=== PATIENT | male | born 1950 | race African-American/Black ===

== ENCOUNTER 2019-02-27 08:06 | Inpatient (IN) | payer OTHER | END 2019-03-03 15:29 | LOC: JER 08:06 → JERBED 11:04 → J5S 13:06 ==

== ENCOUNTER 2020-06-29 19:13 | Emergency (ER) | payer OTHER ==
--- NOTE | 2020-06-29 19:48 | PDOC ---
History of Present Illness - General Stated Complaint: SYNCOPE/NO BOWEL MOVEMENT Time Seen by Provider: 06/29/20 19:45 History Source: Patient, Family Exam Limitations: No Limitations - History of Present Illness Initial Comments: 06/29/20 20:10 70 y.o. M PMHx of HTN, Parkinsons, medically blind presenting due to a syncopal event. Patients history was taken form the son. Patient was sitting down getting his hair cut when he suddenly began foaming out the mouth and lost consciousness. The son reports he was "blacked out" for 5 minutes, during this time he saw no tongue biting, tremors, shaking or incontinence and was at baseline consciousness when he awoke from the incident. Patient had a similar episode 2 weeks ago. Patient reports chills at night but no fevers, headache, sob, chest pain, N/V/D. PCP: Luis PMHx: HTN, Parkinsons, medically blind Meds: In Chart Allergies: NKA 06/29/20 20:29 Is this a multiple visit Asthma Patient?: No Timing/Duration: momentarily Severity: moderate Past History - Medical History Allergies/Adverse Reactions: Allergies Allergy/AdvReac Type Severity Reaction Status Date / Time No Known Allergies Allergy Verified 01/31/20 20:28 Home Medications: Ambulatory Orders Amlodipine Bes/Olmesartan Med [Amlodipine-Olmesartan 10-20 mg] 5 mg PO BID 01/31/20 Acetaminophen [Tylenol .Regular Strength -] 650 mg PO Q6H PRN tablet 02/04/20 Metoprolol Succinate [Toprol XL -] 25 mg PO DAILY #30 tab.sr.24h 02/04/20 Anemia: No Asthma: No Cancer: No Cardiac Disorders: No CVA: No COPD: No CHF: No Dementia: No Diabetes: No GI Disorders: No Disorders: No HTN: Yes Hypercholesterolemia: No Liver Disease: No Seizures: No Thyroid Disease: No - Surgical History Abdominal Surgery: No Appendectomy: No Cardiac Surgery: No Cholecystectomy: No Lung Surgery: No Neurologic Surgery: No Orthopedic Surgery: Yes (FX RIGHT ANKLE TEEN) - Psycho-Social/Smoking History Smoking Status: No Smoking History: Never smoked Have you smoked in the past 12 months: No Number of Cigarettes Smoked Daily: 0 Review of Systems - Review of Systems Able to Perform ROS?: Yes Is the patient limited Armenian proficient: No Constitutional: Yes: Chills. No: Fever HEENTM: Yes: Other (reduced vision). No: Blurred Vision, Double Vision Respiratory: No: Cough, Shortness of Breath, Stridor, Wheezing Cardiac (ROS): No: Chest Pain, Lightheadedness ABD/GI: No: Constipated, Diarrhea, Nausea, Vomiting : No: Burning, Dysuria Musculoskeletal: No: Back Pain, Muscle Weakness Integumentary: No: Bruising, Dryness, Rash Neurological: No: Headache, Numbness, Tingling Hematologic/Lymphatic: No: Blood Clots, Easy Bruising *Physical Exam - Physical Exam General Appearance: Yes: Nourished, Appropriately Dressed. No: Apparent Distress Respiratory/Chest: positive: Lungs Clear, Normal Breath Sounds. negative: Chest Tender, Respiratory Distress, Accessory Muscle Use, Crackles, Rales, Stridor, Wheezing Cardiovascular: positive: Regular Rhythm, Regular Rate. negative: Edema, JVD, Murmur Gastrointestinal/Abdominal: positive: Normal Bowel Sounds, Flat, Soft. negative: Tender, Guarding, Rebound, Tenderness Musculoskeletal: positive: Normal Inspection. negative: CVA Tenderness Extremity: positive: Normal Inspection. negative: Tender, Pedal Edema, Swelling, Calf Tenderness Integumentary: positive: Normal Color, Dry, Warm. negative: Rash, Swelling Neurologic: positive: Fully Oriented, Alert, Normal Mood/Affect, Normal Response ED Treatment Course - LABORATORY CBC & Chemistry Diagram: 06/29/20 20:40 06/29/20 20:40 Medical Decision Making - Medical Decision Making 06/29/20 20:35 70 y.o. M PMHx of HTN, Parkinsons, medically blind presenting due to a syncopal event. DDx: Syncope (neurogenic vs. cardiogenic), seizure, arrhythmia Labs: WBC 7.5, Na 142, K 3.9, Trop <0.02 CT Chest: No acute pathology CT Head: No acute intracranial pathology EKG: NSR, QTc 418ms, rate 72 Son: Hayes ([phone]) would like to be contacted with updates. Dispo: Admission 06/29/20 23:48 Discharge - Discharge Information Problems reviewed: Yes Clinical Impression/Diagnosis: Legally blind Syncope Qualifiers: Syncope type: unspecified Qualified Code(s): R55 - Syncope and collapse Condition: Unchanged/Unknown Disposition: AGAINST MEDICAL ADVICE - Admission Yes - Follow up/Referral Referrals: Jeramie Shore MD [Primary Care Provider] - Donovan Melgar MD [Staff Physician] - Jo Foster MD [Staff Physician] - - Patient Discharge Instructions Patient Printed Discharge Instructions: DI for Syncope in Adults (Fainting) Additional Instructions: Please go to your doctors appointment at 9:30am tomorrow. Please also call the neurologist and the plane runner to schedule a follow up appointment. Please return to the ER immediately with any further concerns or complaints. - Post Discharge Activity
[2020-06-29 20:28] VITALS: TEMP 99.1; BMI 20.9
--- NOTE | 2020-06-29 21:12 | PDOC ---
Documentation entered by Ladan Steele SCRIBE, acting as scribe for Micheline Landis DO. Micheline Landis DO: This documentation has been prepared by the Ivette sehlton Xhesika, SCRIBE, under my direction and personally reviewed by me in its entirety. I confirm that the documentation accurately reflects all work, treatment, procedures, and medical decision making performed by me. Attending Attestation - Resident Resident Name: Hiram Mcclure - ED Attending Attestation I have performed the following: I have examined & evaluated the patient, The case was reviewed & discussed with the resident, I agree w/resident's findings & plan, Exceptions are as noted - HPI HPI: 06/29/20 20:04 The patient is a 70y/o M with a pmh of HTN and Parkinson's who presents to the ED s/p syncopal event. Per son the pt was sitting eating, when he started foaming at mouth, and fell backwards. Per son the patient lost consciousness for 5 minutes and pt was fully alert after the incident. Son denies any tongue biting, tremors, shaking or incontinence. Son notes the patient had a similar episode 2 weeks ago. The patient denies chest pain, shortness of breath, headache and dizziness. Denies fever, chills, cough, nausea, vomiting, diarrhea and constipation. Allergies: NKDA - Physicial Exam PE: 06/29/20 20:07 GENERAL: Awake, alert, and fully oriented, in no acute distress HEAD: No signs of trauma EYES: blind, no vision only see shadow ENT: Auricles normal inspection, hearing grossly normal, nares patent, oropharynx clear without exudates. Moist mucosa. +edentulous NECK: Normal ROM, supple, no lymphadenopathy, JVD, or masses LUNGS: Breath sounds equal, clear to auscultation bilaterally. No wheezes, and no crackles HEART: Regular rate and rhythm, normal S1 and S2, no murmurs, rubs or gallops ABDOMEN: Soft, nontender, normoactive bowel sounds. No guarding, no rebound. No masses EXTREMITIES: Normal range of motion, no edema. No clubbing or cyanosis. No cords, erythema, or tenderness NEUROLOGICAL: Cranial nerves II through XII grossly intact. Normal speech SKIN: Warm, Dry, normal turgor, no rashes lesions noted. - Medical Decision Making 06/29/20 21:09 a/p: 70 yo male with 2 syncopal episodes -syncope tonight with his son, witness in a chair -foaming at the mouth, loc, no head injury, lasted "5" min -also with a syncopal episode 2 weeks ago, did not get eval while walking with his son, unsure if he hit his head at that time -pt is blind otherwise neuro intact -small area of ecchymosis to R upper arm -will send labs, ekg, cxr, head ct -will need obs for syncope 06/29/20 21:11 pt states he has not taken his parkinsons meds in 6m because he does not like the side effects 06/29/20 22:01 Cr at baseline trop neg ct imaging pending 06/29/20 22:[address] ct chest neg microblog sent to [facility] for obs for syncope eval 06/30/20 00:12 son at the bedside pt states he wants to AMA discussed risks and benefits discussed results and concerns for repeat syncope episodes son states he will take his father to the doctor at 930a tomorrow with his PMD pt states he wants to sign out ama will give cards and neuro follow up Heart Score/ECG Review - ECG Intrepretation Comment:: 06/29/20 21:11 sinus at 72, nl axis, nl interval, q waves septally which are age indeterminate, no acute st/t wave findings Discharge - Discharge Information Problems reviewed: Yes Clinical Impression/Diagnosis: Legally blind Syncope Qualifiers: Syncope type: unspecified Qualified Code(s): R55 - Syncope and collapse Condition: Unchanged/Unknown Disposition: AGAINST MEDICAL ADVICE - Admission No - Follow up/Referral Referrals: Jeramie Shore MD [Primary Care Provider] - Jo Foster MD [Staff Physician] - Donovan Melgar MD [Staff Physician] - - Patient Discharge Instructions Patient Printed Discharge Instructions: DI for Syncope in Adults (Fainting) Additional Instructions: Please go to your doctors appointment at 9:30am tomorrow. Please also call the neurologist and the pet supplies salesperson to schedule a follow up appointment. Please return to the ER immediately with any further concerns or complaints. - Post Discharge Activity
[2020-06-29 21:16] LABS: BASO % 0.4 % (0-2.0); EOS % 0.7 % (0-4.5); HEMATOCRIT 33.8 % (35.4-49); HEMOGLOBIN 11.3 GM/dL (11.7-16.9); LYMPH % 18.8 % (8-40); MCH 30.1 pg (25.7-33.7); MCHC 33.3 g/dl (32.0-35.9); MEAN CELL VOLUME 90.5 fl (80-96); MEAN PLT VOLUME 9.2 fl (7.5-11.1); MONO % 5.6 % (3.8-10.2); NEUT % 74.5 % (42.8-82.8); PLATELET COUNT 98 K/MM3 (134-434); RBC 3.74 M/mm3 (4.00-5.60); RDW 15.1 % (11.9-15.9); WHITE BLOOD COUNT 7.5 K/mm3 (4.0-10.0)
[2020-06-29 21:48] LABS: ALBUMIN 3.2 g/dl (3.4-5.0); ALK PHOS 44 U/L (45-117); ANION GAP 5 MMOL/L (8-16); BILIRUBIN,TOTAL 0.8 mg/dL (0.2-1); BLOOD UREA NITROGEN 29.1 mg/dL (7-18); CALCIUM 8.5 mg/dL (8.5-10.1); CHLORIDE 109 mmol/L (98-107); CO2 28 mmol/L (21-32); CREATININE 1.6 mg/dL (0.55-1.3); GLUCOSE,RANDOM 86 mg/dL (74-106); POTASSIUM 3.9 mmol/L (3.5-5.1); SGOT/AST 34 U/L (15-37); SGPT/ALT 34 U/L (13-61); SODIUM 142 mmol/L (136-145); TOT PROT 6.5 g/dl (6.4-8.2)
[2020-06-30 00:44] VITALS: BP 119/66; PULSE 82
--- NOTE | 2020-06-30 13:50 | EKG ---
Test Reason : Blood Pressure : / mmHG Vent. Rate : 072 BPM Atrial Rate : 072 BPM P-R Int : 154 ms QRS Dur : 086 ms QT Int : 382 ms P-R-T Axes : 046 -07 018 degrees QTc Int : 418 ms NORMAL SINUS RHYTHM POOR R WAVE PROGRESSION Confirmed by MARJAN BANGURA MD ([id number]) on 06/30/2020 1:50:04 PM Referred By: Confirmed By:MARJAN BANGURA MD
== END 2020-06-30 00:43 | disposition left against medical advice (07) ==
LOC: JER 19:13
DX: H54.8 Legal blindness, as defined in USA (principal); R55 Syncope and collapse
CPT/HCPCS: 36415; 70450-TC; 71045-TC-FY; 71250-TC; 80053; 82550; 82553; 83735; 84484; 85025; 93005; 93010; 99285-25

== ENCOUNTER 2020-09-21 14:29 | Inpatient (IN) | payer OTHER ==
[2020-09-21] MEDS ORDERED: ONDANSETRON 4 MG/2 ML VIAL IVPUSH ONE (16:55)
[2020-09-21 17:20] LABS: BASO % 0.4 % (0-2.0); EOS % 0.3 % (0-4.5); HEMATOCRIT 37.1 % (35.4-49); HEMOGLOBIN 12.4 GM/dL (11.7-16.9); LYMPH % 13.4 % (8-40); MCH 30.9 pg (25.7-33.7); MCHC 33.5 g/dl (32.0-35.9); MEAN CELL VOLUME 92.1 fl (80-96); MEAN PLT VOLUME 9.4 fl (7.5-11.1); MONO % 4.7 % (3.8-10.2); NEUT % 81.2 % (42.8-82.8); PLATELET COUNT 82 K/MM3 (134-434); RBC 4.03 M/mm3 (4.00-5.60); RDW 15.8 % (11.9-15.9); WHITE BLOOD COUNT 9.9 K/mm3 (4.0-10.0)
[2020-09-21 17:46] LABS: PROTHROMBIN TIME (PATIENT) 12.1 SEC (9.7-13.0)
[2020-09-21 17:49] LABS: ACTIVATED PTT 26.5 SECONDS (25.2-36.5)
[2020-09-21 17:59] LABS: CHLORIDE 104 mmol/L (98-107); SODIUM 142 mmol/L (136-145)
[2020-09-21 18:01] LABS: ALBUMIN 3.7 g/dl (3.4-5.0); ANION GAP 8 MMOL/L (8-16); BLOOD UREA NITROGEN 23.9 mg/dL (7-18); CALCIUM 8.9 mg/dL (8.5-10.1); CO2 30 mmol/L (21-32); GLUCOSE,RANDOM 102 mg/dL (74-106)
[2020-09-21 18:04] LABS: CREATININE 1.7 mg/dL (0.55-1.3); SGOT/AST 29 U/L (15-37)
[2020-09-21 18:06] LABS: BILIRUBIN,TOTAL 1.2 mg/dL (0.2-1); TOT PROT 7.2 g/dl (6.4-8.2)
[2020-09-21 18:07] LABS: ALK PHOS 45 U/L (45-117)
[2020-09-21 18:21] LABS: SGPT/ALT 13 U/L (13-61)
[2020-09-21] MEDS ORDERED: ONDANSETRON 4 MG/2 ML VIAL ONE (18:27)
[2020-09-22] MEDS: SODIUM CHLORIDE 1,000 ML IV SCH ×2 (02:39→16:13)
[2020-09-22] MEDS: HEPARIN NA (PORCINE) 5,000 UNITS/ML 1ML VIAL SQ SCH ×3 (05:43→21:23)
[2020-09-22 10:59] LABS: BASO % 0.4 % (0-2.0); EOS % 0.3 % (0-4.5); HEMATOCRIT 35.1 % (35.4-49); HEMOGLOBIN 11.7 GM/dL (11.7-16.9); LYMPH % 21.4 % (8-40); MCH 30.5 pg (25.7-33.7); MCHC 33.4 g/dl (32.0-35.9); MEAN CELL VOLUME 91.5 fl (80-96); MEAN PLT VOLUME 9.6 fl (7.5-11.1); MONO % 5.6 % (3.8-10.2); NEUT % 72.3 % (42.8-82.8); PLATELET COUNT 102 K/MM3 (134-434); RBC 3.84 M/mm3 (4.00-5.60); RDW 15.6 % (11.9-15.9); WHITE BLOOD COUNT 8.7 K/mm3 (4.0-10.0)
[2020-09-22 11:23] LABS: CHLORIDE 105 mmol/L (98-107); SODIUM 140 mmol/L (136-145)
[2020-09-22 11:24] LABS: ANION GAP 5 MMOL/L (8-16); CALCIUM 8.6 mg/dL (8.5-10.1); CO2 30 mmol/L (21-32); GLUCOSE,RANDOM 91 mg/dL (74-106)
[2020-09-22 11:25] LABS: MAGNESIUM 2.1 mg/dL (1.8-2.4)
[2020-09-22 11:26] LABS: ALBUMIN 3.3 g/dl (3.4-5.0); BLOOD UREA NITROGEN 20.4 mg/dL (7-18)
[2020-09-22 11:29] LABS: CREATININE 1.5 mg/dL (0.55-1.3); PHOSPHOROUS 3.3 mg/dL (2.5-4.9); SGOT/AST 30 U/L (15-37); SGPT/ALT 39 U/L (13-61)
[2020-09-22 11:30] LABS: BILIRUBIN,TOTAL 1.4 mg/dL (0.2-1); TOT PROT 6.6 g/dl (6.4-8.2)
[2020-09-22 11:31] LABS: ALK PHOS 44 U/L (45-117)
[2020-09-22] MEDS ORDERED: POTASSIUM CHLORIDE TABS 20 MEQ TABLET.ER (FP) PO ONE (13:31)
[2020-09-23 01:20] VITALS: BMI 24.1
[2020-09-23] MEDS: SODIUM CHLORIDE 1,000 ML IV SCH (03:15)
[2020-09-23] MEDS: HEPARIN NA (PORCINE) 5,000 UNITS/ML 1ML VIAL SQ SCH ×3 (05:24→21:36)
[2020-09-23 07:20] LABS: BASO % 0.5 % (0-2.0); EOS % 0.5 % (0-4.5); HEMATOCRIT 33.4 % (35.4-49); HEMOGLOBIN 11.5 GM/dL (11.7-16.9); LYMPH % 26.2 % (8-40); MCHC 34.4 g/dl (32.0-35.9); MEAN CELL VOLUME 89.9 fl (80-96); MONO % 5.7 % (3.8-10.2); NEUT % 67.1 % (42.8-82.8); PLATELET COUNT 107 K/MM3 (134-434); RBC 3.71 M/mm3 (4.00-5.60); RDW 15.4 % (11.9-15.9); WHITE BLOOD COUNT 7.1 K/mm3 (4.0-10.0)
[2020-09-23 07:35] LABS: ALBUMIN 3.3 g/dl (3.4-5.0); CALCIUM 8.2 mg/dL (8.5-10.1)
[2020-09-23 07:36] LABS: BLOOD UREA NITROGEN 14.9 mg/dL (7-18); MAGNESIUM 1.9 mg/dL (1.8-2.4)
[2020-09-23 07:39] LABS: CREATININE 1.3 mg/dL (0.55-1.3)
[2020-09-23 07:40] LABS: BILIRUBIN,TOTAL 1.3 mg/dL (0.2-1); TOT PROT 6.4 g/dl (6.4-8.2)
[2020-09-23] MEDS: amLODIPine BESYLATE 5 MG TABLET (FP) PO SCH (12:07)
[2020-09-23] MEDS ORDERED: MIDODRINE HCL 2.5 MG TABLET PO PRN (12:09)
[2020-09-23] MEDS: CARBIDOPA/LEVODOPA 25/100 TABLET (FP) PO SCH ×2 (15:20→21:37)
[2020-09-23] MEDS: MIDODRINE HCL 2.5 MG TABLET PO SCH (18:44)
[2020-09-24] MEDS: SODIUM CHLORIDE 1,000 ML IV SCH (03:10)
[2020-09-24] MEDS: HEPARIN NA (PORCINE) 5,000 UNITS/ML 1ML VIAL SQ SCH ×3 (06:34→22:11)
[2020-09-24] MEDS: CARBIDOPA/LEVODOPA 25/100 TABLET (FP) PO SCH ×3 (06:34→21:53)
[2020-09-24] MEDS ORDERED: TAMSULOSIN HCL 0.4 MG CAP PO SCH (08:30)
[2020-09-24] MEDS: MIDODRINE HCL 2.5 MG TABLET PO SCH ×3 (10:50→19:37)
[2020-09-24] MEDS: amLODIPine BESYLATE 5 MG TABLET (FP) PO SCH (10:54)
[2020-09-24 18:02] LABS: BASO % 0.5 % (0-2.0); EOS % 1.1 % (0-4.5); HEMATOCRIT 33.1 % (35.4-49); HEMOGLOBIN 11.3 GM/dL (11.7-16.9); LYMPH % 29.7 % (8-40); MCH 31.1 pg (25.7-33.7); MEAN CELL VOLUME 91.5 fl (80-96); MEAN PLT VOLUME 9.4 fl (7.5-11.1); MONO % 6.8 % (3.8-10.2); NEUT % 61.9 % (42.8-82.8); PLATELET COUNT 106 K/MM3 (134-434); RBC 3.62 M/mm3 (4.00-5.60); RDW 15.5 % (11.9-15.9); WHITE BLOOD COUNT 7.1 K/mm3 (4.0-10.0)
[2020-09-24 18:28] LABS: ALBUMIN 3.1 g/dl (3.4-5.0); CALCIUM 8.6 mg/dL (8.5-10.1)
[2020-09-24 18:29] LABS: BLOOD UREA NITROGEN 23.4 mg/dL (7-18); MAGNESIUM 2.3 mg/dL (1.8-2.4)
[2020-09-24 18:32] LABS: CREATININE 1.8 mg/dL (0.55-1.3)
[2020-09-24 18:33] LABS: BILIRUBIN,TOTAL 1.1 mg/dL (0.2-1); TOT PROT 6.1 g/dl (6.4-8.2)
[2020-09-24] MEDS ORDERED: PT OWN MED DRAWER 7, Y5N ONE ×2 (19:18→20:48)
[2020-09-25] MEDS: CARBIDOPA/LEVODOPA 25/100 TABLET (FP) PO SCH (05:55)
[2020-09-25] MEDS: HEPARIN NA (PORCINE) 5,000 UNITS/ML 1ML VIAL SQ SCH (05:56)
[2020-09-25 08:37] LABS: BASO % 0.6 % (0-2.0); EOS % 0.8 % (0-4.5); HEMATOCRIT 34.1 % (35.4-49); HEMOGLOBIN 11.7 GM/dL (11.7-16.9); LYMPH % 28.8 % (8-40); MCH 31.1 pg (25.7-33.7); MCHC 34.3 g/dl (32.0-35.9); MEAN CELL VOLUME 90.8 fl (80-96); MEAN PLT VOLUME 8.8 fl (7.5-11.1); MONO % 6.9 % (3.8-10.2); NEUT % 62.9 % (42.8-82.8); PLATELET COUNT 104 K/MM3 (134-434); RBC 3.76 M/mm3 (4.00-5.60); RDW 15.3 % (11.9-15.9); WHITE BLOOD COUNT 7.5 K/mm3 (4.0-10.0)
[2020-09-25 08:49] LABS: CALCIUM 8.2 mg/dL (8.5-10.1)
[2020-09-25 08:50] LABS: ALBUMIN 3.2 g/dl (3.4-5.0); BLOOD UREA NITROGEN 26.4 mg/dL (7-18); MAGNESIUM 2.2 mg/dL (1.8-2.4)
[2020-09-25 08:53] LABS: CREATININE 1.6 mg/dL (0.55-1.3)
[2020-09-25 08:54] LABS: TOT PROT 6.3 g/dl (6.4-8.2)
[2020-09-25] MEDS ORDERED: ALFUZOSIN 10 MG PO SCH (10:00)
[2020-09-25] MEDS: amLODIPine BESYLATE 5 MG TABLET (FP) PO SCH (10:14)
[2020-09-25] MEDS: MIDODRINE HCL 2.5 MG TABLET PO SCH (10:16)
[2020-09-25 11:33] VITALS: BP 127/79; PULSE 67; TEMP 97.7
== END 2020-09-25 11:51 | DRG 57 ==
LOC: JER 14:29 → JERBED 19:19 → J4W 09-22 00:24
PROVIDERS: ADMIT Hospitalist; ATTEND Nurse Practitioner Family
DX: G31.83 Neurocognitive disorder with Lewy bodies (principal); F02.80 Dementia in other diseases classified elsewhere, unspecified severity, without behavioral disturbance, psychotic disturbance, mood disturbance, and anxiety; I12.9 Hypertensive chronic kidney disease with stage 1 through stage 4 chronic kidney disease, or unspecified chronic kidney disease; N18.9 Chronic kidney disease, unspecified; R13.10 Dysphagia, unspecified; H54.8 Legal blindness, as defined in USA
CPT/HCPCS: 36415; 70450-TC; 71045-TC-FY; 72125-TC; 80053; 83735; 84100; 84443; 84484; 85025; 85610; 85730; 87804; 93005; 93010; 97116-GP; 97161-GP; 99285-25; C9803; J1644; U0003

== ENCOUNTER 2021-05-16 14:56 | Emergency (ER) | payer OTHER ==
[2021-05-16 15:20] VITALS: TEMP 98; BMI 26.5
[2021-05-16 16:37] LABS: BASO % 0.3 % (0-2.0); EOS % 0.2 % (0-4.5); HEMATOCRIT 35.8 % (35.4-49); HEMOGLOBIN 12.1 GM/dL (11.7-16.9); LYMPH % 12.2 % (8-40); MCH 29.9 pg (25.7-33.7); MCHC 33.7 g/dl (32.0-35.9); MEAN CELL VOLUME 88.6 fl (80-96); MEAN PLT VOLUME 8.7 fl (7.5-11.1); MONO % 4.3 % (3.8-10.2); PLATELET COUNT 79 10^3/uL (134-434); RBC 4.04 M/mm3 (4.00-5.60); RDW 15.9 % (11.9-15.9); WHITE BLOOD COUNT 7.5 K/mm3 (4.0-10.0)
[2021-05-16 16:54] LABS: CHLORIDE 105 mmol/L (98-107); SODIUM 142 mmol/L (136-145)
[2021-05-16 16:57] LABS: ALBUMIN 3.5 g/dl (3.4-5.0); ANION GAP 7 MMOL/L (8-16); BLOOD UREA NITROGEN 31.2 mg/dL (7-18); CALCIUM 8.7 mg/dL (8.5-10.1); CO2 30 mmol/L (21-32); GLUCOSE,RANDOM 104 mg/dL (74-106)
[2021-05-16 17:00] LABS: CREATININE 1.4 mg/dL (0.55-1.3); SGOT/AST 30 U/L (15-37); SGPT/ALT 15 U/L (13-61)
[2021-05-16 17:01] LABS: BILIRUBIN,TOTAL 1.2 mg/dL (0.2-1)
[2021-05-16 17:03] LABS: ALK PHOS 46 U/L (45-117); TOT PROT 7.3 g/dl (6.4-8.2)
[2021-05-16 17:26] VITALS: BP 148/90; PULSE 60
== END 2021-05-16 17:20 | disposition left against medical advice (07) ==
LOC: JER 14:56
DX: R55 Syncope and collapse (principal); I48.92 Unspecified atrial flutter; Z53.21 Procedure and treatment not carried out due to patient leaving prior to being seen by health care provider
CPT/HCPCS: 36415; 71045-TC-FY; 80053; 84484; 85025; 93005; 93010; 99285-25; C9803; U0003; U0005

== ENCOUNTER 2021-08-05 14:20 | Inpatient (IN) | payer OTHER ==
[2021-08-05 14:40] VITALS: BMI 26.5
[2021-08-05 15:24] LABS: BASO % 0.2 % (0-2.0); EOS % 0.4 % (0-4.5); HEMATOCRIT 34.1 % (35.4-49); HEMOGLOBIN 11.4 GM/dL (11.7-16.9); LYMPH % 9.6 % (8-40); MCHC 33.5 g/dl (32.0-35.9); MEAN CELL VOLUME 89.7 fl (80-96); MEAN PLT VOLUME 7.6 fl (7.5-11.1); MONO % 5.8 % (3.8-10.2); PLATELET COUNT 93 10^3/uL (134-434); RDW 15.7 % (11.9-15.9)
[2021-08-05 15:29] LABS: INR 1.07 (0.83-1.09)
[2021-08-05 15:32] LABS: ACTIVATED PTT 25.2 SECONDS (25.2-36.5)
[2021-08-05 15:42] LABS: CHLORIDE 103 mmol/L (98-107); SODIUM 140 mmol/L (136-145)
[2021-08-05 15:44] LABS: CALCIUM 8.4 mg/dL (8.5-10.1)
[2021-08-05 15:45] LABS: ALBUMIN 3.2 g/dl (3.4-5.0); ANION GAP 6 MMOL/L (8-16); BLOOD UREA NITROGEN 19.4 mg/dL (7-18); CO2 31 mmol/L (21-32); GLUCOSE,RANDOM 126 mg/dL (74-106)
[2021-08-05 15:48] LABS: CREATININE 1.6 mg/dL (0.55-1.3); SGOT/AST 22 U/L (15-37); SGPT/ALT 10 U/L (13-61)
[2021-08-05 15:50] LABS: TOT PROT 6.7 g/dl (6.4-8.2)
[2021-08-05 15:51] LABS: ALK PHOS 50 U/L (45-117)
[2021-08-05] MEDS ORDERED: POTASSIUM CHLORIDE TABS 20 MEQ TABLET.ER (FP) PO ONE ×2 (15:56→16:33)
[2021-08-05] MEDS ORDERED: LACTATED RINGERS SOLUTION 1000 ML INFUS.BAG IV ONE (17:47)
[2021-08-05 17:56] LABS: EPI CELLS 7 /uL (0-25.1); HYALINE CASTS 28 /uL (0-3.1); URINE APPEARANCE CLOUDY; URINE BILIRUBIN 2+ (NEGATIVE); URINE COLOR DK YELLOW; URINE GLUCOSE (UA) NEGATIVE (NEGATIVE); URINE KETONE TRACE (NEGATIVE); URINE LEUK ESTERASE 2+ (NEGATIVE); URINE NITRITE POSITIVE (NEGATIVE); URINE PROTEIN 2+ (NEGATIVE); URINE RBC 41 /uL (0-23.9); URINE WBC 637 /uL (0-25.8)
[2021-08-05 18:10] LABS: PHOSPHOROUS 3.2 mg/dL (2.5-4.9)
[2021-08-05] MEDS ORDERED: CEFTRIAXONE 1 GM in DEXTROSE 5%-WATER - 50 ML IVPB ONE (18:16)
[2021-08-05] MEDS ORDERED: CEFTRIAXONE 1 GM/50 ML BAG ONE (18:20)
[2021-08-05 18:58] LABS: URINE BACTERIA 23 /uL (0-1359)
[2021-08-05] MEDS: SODIUM CHLORIDE 1,000 ML IV SCH (19:30)
[2021-08-05] MEDS ORDERED: PT OWN MED DRAWER 7, Y5N ONE ×2 (21:12→21:46)
[2021-08-05] MEDS: CARBIDOPA/LEVODOPA 25/100 TABLET (FP) PO SCH (21:32)
[2021-08-05] MEDS ORDERED: CARBIDOPA/LEVODOPA 25/100 TABLET (FP) PO SCH (22:00)
[2021-08-06] MEDS ORDERED: PT OWN MED DRAWER 7, Y5N ONE ×2 (05:23→06:20)
[2021-08-06] MEDS: CARBIDOPA/LEVODOPA 25/100 TABLET (FP) PO SCH ×2 (05:27→06:45)
[2021-08-06] MEDS ORDERED: DEXTROSE 5%-WATER - 50 ML IVPB ONE (11:16)
[2021-08-06] MEDS ORDERED: cefTRIAXone SODIUM 1 GM VIAL ONE (11:16)
[2021-08-06] MEDS: CEFTRIAXONE 1 GM in DEXTROSE 5%-WATER - 50 ML IVPB SCH (11:26)
[2021-08-06] MEDS: MIDODRINE HCL 5 MG TABLET PO SCH ×2 (11:26→14:09)
[2021-08-06] MEDS: amLODIPine BESYLATE 5 MG TABLET (FP) PO SCH (11:26)
[2021-08-06] MEDS: TAMSULOSIN HCL 0.4 MG CAP PO SCH ×2 (11:26→18:24)
[2021-08-06 12:02] LABS: BASO % 0.5 % (0-2.0); EOS % 0.3 % (0-4.5); HEMATOCRIT 32.2 % (35.4-49); HEMOGLOBIN 10.8 GM/dL (11.7-16.9); LYMPH % 19.9 % (8-40); MCH 30.3 pg (25.7-33.7); MCHC 33.7 g/dl (32.0-35.9); MEAN CELL VOLUME 89.9 fl (80-96); MEAN PLT VOLUME 8.6 fl (7.5-11.1); MONO % 5.6 % (3.8-10.2); NEUT % 73.7 % (42.8-82.8); PLATELET COUNT 107 10^3/uL (134-434); RBC 3.58 M/mm3 (4.00-5.60); RDW 15.9 % (11.9-15.9); WHITE BLOOD COUNT 7.3 K/mm3 (4.0-10.0)
[2021-08-06 12:29] LABS: CALCIUM 8.5 mg/dL (8.5-10.1)
[2021-08-06 12:30] LABS: ALBUMIN 3.1 g/dl (3.4-5.0); BLOOD UREA NITROGEN 13.8 mg/dL (7-18)
[2021-08-06 12:33] LABS: CREATININE 1.1 mg/dL (0.55-1.3); PHOSPHOROUS 2.9 mg/dL (2.5-4.9)
[2021-08-06 12:34] LABS: BILIRUBIN,TOTAL 1.1 mg/dL (0.2-1); TOT PROT 6.5 g/dl (6.4-8.2)
[2021-08-06] MEDS ORDERED: POTASSIUM CHLORIDE TABS 20 MEQ TABLET.ER (FP) PO ONE (15:05)
[2021-08-06] MEDS: KCL 10 MEQ IVPB 10 MEQ/100 ML INFUS.BAG IVPB SCH ×2 (16:44→18:22)
[2021-08-06] MEDS: SODIUM CHLORIDE 1,000 ML IV SCH (18:21)
[2021-08-06] MEDS: QUEtiapine FUMARATE 25 MG TABLET PO SCH (21:26)
[2021-08-06] MEDS: ATORVASTATIN CA 20 MG TABLET (FP) PO SCH (21:26)
[2021-08-06] MEDS: POTASSIUM CHLORIDE TABS 20 MEQ TABLET.ER (FP) PO SCH (21:26)
[2021-08-07] MEDS: TAMSULOSIN HCL 0.4 MG CAP PO SCH ×2 (06:14→18:01)
[2021-08-07 07:07] LABS: HEMATOCRIT 31.8 % (35.4-49); HEMOGLOBIN 10.8 GM/dL (11.7-16.9); MCH 30.6 pg (25.7-33.7); MEAN CELL VOLUME 89.8 fl (80-96); PLATELET COUNT 106 10^3/uL (134-434); RBC 3.54 M/mm3 (4.00-5.60); RDW 15.5 % (11.9-15.9); WHITE BLOOD COUNT 6.9 K/mm3 (4.0-10.0)
[2021-08-07] MEDS ORDERED: cefTRIAXone SODIUM 1 GM VIAL ONE (07:57)
[2021-08-07] MEDS ORDERED: DEXTROSE 5%-WATER - 50 ML IVPB ONE (07:57)
[2021-08-07] MEDS: POTASSIUM CHLORIDE TABS 20 MEQ TABLET.ER (FP) PO SCH ×2 (09:28→21:53)
[2021-08-07] MEDS: amLODIPine BESYLATE 5 MG TABLET (FP) PO SCH (09:28)
[2021-08-07] MEDS: ASPIRIN COATED 81 MG TABLET.EC PO SCH (09:28)
[2021-08-07] MEDS: CEFTRIAXONE 1 GM in DEXTROSE 5%-WATER - 50 ML IVPB SCH (09:29)
[2021-08-07] MEDS: ENOXAPARIN NA (PORCINE) 40 MG/0.4 ML DISP.SYRIN SQ SCH (09:29)
[2021-08-07 09:54] LABS: ALBUMIN 3.1 g/dl (3.4-5.0); BLOOD UREA NITROGEN 14.5 mg/dL (7-18); CALCIUM 8.4 mg/dL (8.5-10.1); CREATININE 1.2 mg/dL (0.55-1.3); TOT PROT 6.6 g/dl (6.4-8.2)
[2021-08-07] MEDS ORDERED: PATIENT'S OWN MEDICATION (NON-FORMULARY) (Pimavanserin Tartrate [Nuplazid] 34 MG Capsule) PO SCH (10:00)
[2021-08-07] MEDS ORDERED: CARBIDOPA/LEVODOPA 25/100 TABLET (FP) PO SCH (10:00)
[2021-08-07] MEDS: LISINOPRIL 5 MG TABLET PO SCH (14:18)
[2021-08-07 20:57] LABS: N-TERMINAL BNP 236.8 pg/ml (5-125)
[2021-08-07] MEDS: ATORVASTATIN CA 20 MG TABLET (FP) PO SCH (21:53)
[2021-08-07] MEDS: levETIRAcetam 500 MG TABLET (FP) PO SCH (21:53)
[2021-08-07] MEDS: QUEtiapine FUMARATE 25 MG TABLET PO SCH (21:53)
[2021-08-08] MEDS: TAMSULOSIN HCL 0.4 MG CAP PO SCH (06:26)
[2021-08-08 07:39] LABS: BASO % 0.4 % (0-2.0); EOS % 0.8 % (0-4.5); HEMATOCRIT 30.1 % (35.4-49); HEMOGLOBIN 10.1 GM/dL (11.7-16.9); LYMPH % 26.1 % (8-40); MCH 30.2 pg (25.7-33.7); MCHC 33.7 g/dl (32.0-35.9); MEAN CELL VOLUME 89.8 fl (80-96); MEAN PLT VOLUME 8.6 fl (7.5-11.1); MONO % 6.8 % (3.8-10.2); NEUT % 65.9 % (42.8-82.8); PLATELET COUNT 105 10^3/uL (134-434); RBC 3.35 M/mm3 (4.00-5.60); RDW 15.7 % (11.9-15.9)
[2021-08-08 08:36] VITALS: BP 136/79; PULSE 62; TEMP 98.8
[2021-08-08] MEDS: ENOXAPARIN NA (PORCINE) 40 MG/0.4 ML DISP.SYRIN SQ SCH (09:44)
[2021-08-08] MEDS: levETIRAcetam 500 MG TABLET (FP) PO SCH (09:44)
[2021-08-08] MEDS: LISINOPRIL 5 MG TABLET PO SCH (09:44)
[2021-08-08] MEDS: ASPIRIN COATED 81 MG TABLET.EC PO SCH (09:44)
[2021-08-08] MEDS: amLODIPine BESYLATE 5 MG TABLET (FP) PO SCH (09:44)
[2021-08-08 10:22] LABS: ALBUMIN 2.8 g/dl (3.4-5.0); BILIRUBIN,TOTAL 0.9 mg/dL (0.2-1); BLOOD UREA NITROGEN 21.2 mg/dL (7-18); CALCIUM 8.6 mg/dL (8.5-10.1); CREATININE 1.4 mg/dL (0.55-1.3); PHOSPHOROUS 3.8 mg/dL (2.5-4.9); TOT PROT 6.1 g/dl (6.4-8.2)
[2021-08-08 14:28] LABS: MAGNESIUM 2.2 mg/dL (1.8-2.4)
== END 2021-08-08 13:02 | disposition home health service (06) | DRG 101 ==
LOC: JER 14:20 → JERBED 15:07 → J4W 19:19
PROVIDERS: ADMIT Internal Medicine; ATTEND Internal Medicine
DX: R56.9 Unspecified convulsions (principal); I48.92 Unspecified atrial flutter; R44.0 Auditory hallucinations; R55 Syncope and collapse; G20 Parkinson's disease; E87.6 Hypokalemia; N18.9 Chronic kidney disease, unspecified; F03.90 Unspecified dementia, unspecified severity, without behavioral disturbance, psychotic disturbance, mood disturbance, and anxiety; H54.8 Legal blindness, as defined in USA; N40.0 Benign prostatic hyperplasia without lower urinary tract symptoms; I10 Essential (primary) hypertension
CPT/HCPCS: 36415; 70450-TC; 70551-TC; 71045-TC-FY; 80053; 80061; 81003; 82550; 83036; 83735; 83880; 84100; 84443; 84484; 85025; 85027; 85610; 85730; 87086; 93005; 93010; 93306-TC; 95816; 97116-GP; 97162-GP; 99285-25; C9803; U0003; U0005

== ENCOUNTER 2021-08-13 15:58 | Inpatient (IN) | payer OTHER ==
[2021-08-13 17:08] LABS: BASO % 0.5 % (0-2.0); EOS % 0.5 % (0-4.5); HEMATOCRIT 34.7 % (35.4-49); HEMOGLOBIN 11.7 GM/dL (11.7-16.9); MCH 30.5 pg (25.7-33.7); MCHC 33.8 g/dl (32.0-35.9); MEAN CELL VOLUME 90.2 fl (80-96); MEAN PLT VOLUME 8.6 fl (7.5-11.1); MONO % 2.9 % (3.8-10.2); NEUT % 84.1 % (42.8-82.8); PLATELET COUNT 139 10^3/uL (134-434); RBC 3.85 M/mm3 (4.00-5.60); WHITE BLOOD COUNT 8.2 K/mm3 (4.0-10.0)
[2021-08-13 17:15] LABS: INR 1.06 (0.83-1.09); PROTHROMBIN TIME (PATIENT) 11.9 SEC (9.7-13.0)
[2021-08-13 17:18] LABS: ACTIVATED PTT 26.9 SECONDS (25.2-36.5)
[2021-08-13 17:26] LABS: CALCIUM 8.8 mg/dL (8.5-10.1)
[2021-08-13 17:27] LABS: BLOOD UREA NITROGEN 27.1 mg/dL (7-18)
[2021-08-13 17:29] LABS: CREATININE 1.5 mg/dL (0.55-1.3)
[2021-08-13 17:31] LABS: BILIRUBIN,TOTAL 0.7 mg/dL (0.2-1); TOT PROT 7.3 g/dl (6.4-8.2)
[2021-08-13 17:33] LABS: ALBUMIN 3.5 g/dl (3.4-5.0)
[2021-08-13] MEDS ORDERED: POTASSIUM CHLORIDE TABS 20 MEQ TABLET.ER (FP) PO ONE ×2 (17:35→17:43)
[2021-08-13] MEDS ORDERED: LORazepam 2 MG/ML SDV VIAL IVPUSH PRN (19:55)
[2021-08-13] MEDS ORDERED: LORazepam 1 MG TABLET PO PRN (21:01)
[2021-08-13 21:07] LABS: EPI CELLS 8 /uL (0-25.1); HYALINE CASTS 7 /uL (0-3.1); PH,URINE 5.5 (5.0-8.0); URINE APPEARANCE CLOUDY; URINE BACTERIA 2 /uL (0-1359); URINE BILIRUBIN NEGATIVE (NEGATIVE); URINE COLOR YELLOW; URINE GLUCOSE (UA) NEGATIVE (NEGATIVE); URINE KETONE TRACE (NEGATIVE); URINE LEUK ESTERASE NEGATIVE (NEGATIVE); URINE NITRITE NEGATIVE (NEGATIVE); URINE PROTEIN 1+ (NEGATIVE); URINE WBC 17 /uL (0-25.8)
[2021-08-13] MEDS ORDERED: SODIUM CHLORIDE 1,000 ML IV SCH (21:15)
[2021-08-13 23:15] LABS: URINE RBC 36.9 /uL (0-23.9); YEAST NONE SEEN (NEGATIVE)
[2021-08-13 23:23] LABS: URINE CRYSTALS NONE SEEN /hpf
[2021-08-14] MEDS: ATORVASTATIN CA 20 MG TABLET (FP) PO SCH ×2 (00:28→21:47)
[2021-08-14] MEDS: levETIRAcetam 500 MG TABLET (FP) PO SCH ×2 (00:28→10:45)
[2021-08-14] MEDS: TAMSULOSIN HCL 0.4 MG CAP PO SCH ×3 (00:29→21:47)
[2021-08-14 01:10] VITALS: BMI 22.8
[2021-08-14] MEDS: HEPARIN NA (PORCINE) 5,000 UNITS/ML 1ML VIAL SQ SCH ×3 (01:56→17:02)
[2021-08-14] MEDS ORDERED: PATIENT'S OWN MEDICATION (NON-FORMULARY) (Pimavanserin Tartrate [Nuplazid] 34 MG Capsule) PO SCH (10:00)
[2021-08-14] MEDS: ASPIRIN COATED 81 MG TABLET.EC PO SCH (10:45)
[2021-08-14] MEDS: LISINOPRIL 5 MG TABLET PO SCH (10:45)
[2021-08-14] MEDS: amLODIPine BESYLATE 5 MG TABLET (FP) PO SCH (10:45)
[2021-08-14 11:06] LABS: BASO % 0.7 % (0-2.0); EOS % 0.6 % (0-4.5); HEMATOCRIT 32.2 % (35.4-49); HEMOGLOBIN 10.8 GM/dL (11.7-16.9); LYMPH % 20.1 % (8-40); MCH 30.1 pg (25.7-33.7); MCHC 33.6 g/dl (32.0-35.9); MEAN CELL VOLUME 89.4 fl (80-96); MEAN PLT VOLUME 8.6 fl (7.5-11.1); MONO % 3.9 % (3.8-10.2); NEUT % 74.7 % (42.8-82.8); PLATELET COUNT 120 10^3/uL (134-434); RDW 15.8 % (11.9-15.9); WHITE BLOOD COUNT 7.8 K/mm3 (4.0-10.0)
[2021-08-14 12:37] LABS: ALBUMIN 3.1 g/dl (3.4-5.0); BLOOD UREA NITROGEN 17.7 mg/dL (7-18); CALCIUM 8.5 mg/dL (8.5-10.1); MAGNESIUM 2.2 mg/dL (1.8-2.4)
[2021-08-14 12:40] LABS: CREATININE 1.1 mg/dL (0.55-1.3); PHOSPHOROUS 2.8 mg/dL (2.5-4.9)
[2021-08-14 12:41] LABS: TOT PROT 6.4 g/dl (6.4-8.2)
[2021-08-14] MEDS ORDERED: amLODIPine BESYLATE 5 MG TABLET (FP) PO ONE (16:29)
[2021-08-14] MEDS ORDERED: POLYETHYLENE GLYCOL (HEALTHYLAX) 3350 17 GM PACKET PO ONE (16:29)
[2021-08-14] MEDS ORDERED: levETIRAcetam 500 MG TABLET (FP) PO ONE (16:30)
[2021-08-14] MEDS: levETIRAcetam 250 MG TABLET PO SCH (21:47)
[2021-08-15] MEDS: HEPARIN NA (PORCINE) 5,000 UNITS/ML 1ML VIAL SQ SCH ×2 (02:43→11:52)
[2021-08-15 10:07] LABS: HEMATOCRIT 29.6 % (35.4-49); HEMOGLOBIN 10.3 GM/dL (11.7-16.9); MCHC 34.7 g/dl (32.0-35.9); MEAN CELL VOLUME 89.4 fl (80-96); PLATELET COUNT 114 10^3/uL (134-434); RBC 3.31 M/mm3 (4.00-5.60); WHITE BLOOD COUNT 7.7 K/mm3 (4.0-10.0)
[2021-08-15 10:36] LABS: CALCIUM 8.5 mg/dL (8.5-10.1); MAGNESIUM 2.2 mg/dL (1.8-2.4)
[2021-08-15 10:37] LABS: BLOOD UREA NITROGEN 14.8 mg/dL (7-18)
[2021-08-15 10:38] LABS: PHOSPHOROUS 3.3 mg/dL (2.5-4.9)
[2021-08-15 10:40] LABS: BILIRUBIN,TOTAL 1.1 mg/dL (0.2-1)
[2021-08-15 10:43] LABS: ALBUMIN 2.6 g/dl (3.4-5.0)
[2021-08-15] MEDS: amLODIPine BESYLATE 5 MG TABLET (FP) PO SCH (11:50)
[2021-08-15] MEDS: TAMSULOSIN HCL 0.4 MG CAP PO SCH (11:50)
[2021-08-15] MEDS: LISINOPRIL 5 MG TABLET PO SCH (11:51)
[2021-08-15] MEDS: ASPIRIN COATED 81 MG TABLET.EC PO SCH (11:51)
[2021-08-15] MEDS: levETIRAcetam 250 MG TABLET PO SCH (11:51)
[2021-08-15 12:03] VITALS: PULSE 89; TEMP 97.8
[2021-08-15 13:38] VITALS: BP 147/95
== END 2021-08-15 15:45 | disposition home or self-care (01) | DRG 101 ==
LOC: JER 15:58 → JERBED 18:10 → J5S 22:53
PROVIDERS: ATTEND Internal Medicine
DX: G40.909 Epilepsy, unspecified, not intractable, without status epilepticus (principal); N17.9 Acute kidney failure, unspecified; G20 Parkinson's disease; F02.80 Dementia in other diseases classified elsewhere, unspecified severity, without behavioral disturbance, psychotic disturbance, mood disturbance, and anxiety; I12.9 Hypertensive chronic kidney disease with stage 1 through stage 4 chronic kidney disease, or unspecified chronic kidney disease; N18.9 Chronic kidney disease, unspecified
CPT/HCPCS: 36415; 80053; 80177; 81003; 82272; 82962; 83735; 84100; 85025; 85027; 85610; 85730; 87086; 93005; 93010; 93926-TC; 97116-GP; 97162-GP; 99285-25; C9803; J1644; U0003; U0005

== ENCOUNTER 2022-02-12 15:12 | Emergency (ER) | payer OTHER ==
[2022-02-12 15:56] VITALS: BMI 25.4
[2022-02-12 16:50] LABS: VENOUS BASE EXCESS -0.5 mmol/L (-2-2); VENOUS O2 SATURATION 70.9 % (70-80); VENOUS PCO2 41.8 mmHg (38-52); VENOUS PH 7.386 (7.310-7.410)
[2022-02-12 17:03] LABS: BASO % 0.4 % (0-2.0); EOS % 0.4 % (0-4.5); HEMATOCRIT 34.7 % (35.4-49); HEMOGLOBIN 11.7 GM/dL (11.7-16.9); LYMPH % 16.1 % (8-40); MCH 30.2 pg (25.7-33.7); MCHC 33.8 g/dl (32.0-35.9); MEAN CELL VOLUME 89.3 fl (80-96); MEAN PLT VOLUME 7.8 fl (7.5-11.1); MONO % 4.8 % (3.8-10.2); NEUT % 78.3 % (42.8-82.8); PLATELET COUNT 98 10^3/uL (134-434); RBC 3.88 M/mm3 (4.00-5.60); RDW 15.4 % (11.9-15.9); WHITE BLOOD COUNT 6.4 K/mm3 (4.0-10.0)
[2022-02-12 17:27] LABS: BLOOD UREA NITROGEN 22.7 mg/dL (7-18); CALCIUM 8.4 mg/dL (8.5-10.1); MAGNESIUM 2.3 mg/dL (1.8-2.4)
[2022-02-12 17:28] LABS: ALBUMIN 3.2 g/dl (3.4-5.0)
[2022-02-12 17:30] LABS: PHOSPHOROUS 3.6 mg/dL (2.5-4.9)
[2022-02-12 17:31] LABS: CREATININE 1.3 mg/dL (0.55-1.3)
[2022-02-12 17:32] LABS: BILIRUBIN,TOTAL 1.2 mg/dL (0.2-1); TOT PROT 6.7 g/dl (6.4-8.2)
[2022-02-12] MEDS ORDERED: KCL 10 MEQ IVPB 10 MEQ/100 ML INFUS.BAG IVPB SCH (18:00)
[2022-02-12] MEDS ORDERED: KCL 10 MEQ IVPB 10 MEQ/100 ML INFUS.BAG IVPB ONE (19:08)
[2022-02-12 19:11] LABS: URINE APPEARANCE CLEAR; URINE BILIRUBIN NEGATIVE (NEGATIVE); URINE COLOR YELLOW; URINE GLUCOSE (UA) NEGATIVE (NEGATIVE); URINE KETONE TRACE (NEGATIVE); URINE LEUK ESTERASE NEGATIVE (NEGATIVE); URINE NITRITE NEGATIVE (NEGATIVE); URINE PROTEIN TRACE (NEGATIVE)
[2022-02-12 20:56] VITALS: BP 160/100; PULSE 76; TEMP 99.2
== END 2022-02-12 20:59 | disposition home or self-care (01) ==
LOC: JER 15:12
PROC: 3E033GC Introduction of Other Therapeutic Substance into Peripheral Vein, Percutaneous Approach (ICD-10-PCS; principal; 2022-02-12)
DX: G40.89 Other seizures (principal)
CPT/HCPCS: 36415; 71045-TC-FY; 80053; 80177; 81003; 82550; 82803; 83605; 83735; 84100; 84484; 85025; 87086; 93005; 93010; 99285-25

== ENCOUNTER 2022-08-13 10:29 | Inpatient (IN) | payer OTHER ==
[2022-08-13 11:14] LABS: VENOUS BASE EXCESS 1.3 mmol/L (-2-2); VENOUS O2 SATURATION 44.9 % (70-80); VENOUS PCO2 59.6 mmHg (38-52); VENOUS PH 7.302 (7.310-7.410)
[2022-08-13 11:16] LABS: BASO % 0.5 % (0-2.0); EOS % 1.1 % (0-4.5); HEMATOCRIT 34.8 % (35.4-49); HEMOGLOBIN 11.2 GM/dL (11.7-16.9); LYMPH % 23.7 % (8-40); MCH 29.5 pg (25.7-33.7); MCHC 32.2 g/dl (32.0-35.9); MEAN CELL VOLUME 91.6 fl (80-96); MEAN PLT VOLUME 9.7 fl (7.5-11.1); MONO % 4.5 % (3.8-10.2); NEUT % 70.2 % (42.8-82.8); PLATELET COUNT 114 10^3/uL (134-434); RBC 3.79 M/mm3 (4.00-5.60); RDW 16.4 % (11.9-15.9); WHITE BLOOD COUNT 6.9 K/mm3 (4.0-10.0)
[2022-08-13 11:23] LABS: INR 1.14 (0.83-1.09); PROTHROMBIN TIME (PATIENT) 13.1 SEC (9.7-13.0)
[2022-08-13 11:25] LABS: ACTIVATED PTT 26.3 SECONDS (25.2-36.5)
[2022-08-13 11:43] LABS: CHLORIDE 112 mmol/L (98-107); SODIUM 148 mmol/L (136-145)
[2022-08-13 11:45] LABS: CALCIUM 8.4 mg/dL (8.5-10.1)
[2022-08-13 11:46] LABS: ALBUMIN 2.8 g/dl (3.4-5.0); ANION GAP 8 MMOL/L (8-16); BLOOD UREA NITROGEN 23.7 mg/dL (7-18); CO2 29 mmol/L (21-32); GLUCOSE,RANDOM 118 mg/dL (74-106)
[2022-08-13 11:49] LABS: CREATININE 1.1 mg/dL (0.55-1.3); SGOT/AST 22 U/L (15-37); SGPT/ALT 24 U/L (13-61)
[2022-08-13 11:51] LABS: BILIRUBIN,TOTAL 0.8 mg/dL (0.2-1); TOT PROT 6.1 g/dl (6.4-8.2)
[2022-08-13 11:52] LABS: ALK PHOS 38 U/L (45-117)
[2022-08-13] MEDS ORDERED: amLODIPine BESYLATE 5 MG TABLET (FP) PO ONE (13:57)
[2022-08-13] MEDS ORDERED: CARBIDOPA/LEVODOPA 25/100 TABLET (FP) ONE (14:24)
[2022-08-13] MEDS ORDERED: amLODIPine BESYLATE 5 MG TABLET (FP) ONE (14:24)
[2022-08-13] MEDS ORDERED: HEPARIN NA (PORCINE) 5,000 UNITS/ML 1ML VIAL ONE (20:31)
[2022-08-13] MEDS ORDERED: METOPROLOL TARTRATE 25 MG TABLET (FP) ONE (20:31)
[2022-08-13] MEDS: METOPROLOL TARTRATE 25 MG TABLET (FP) PO SCH (21:26)
[2022-08-13] MEDS: HEPARIN NA (PORCINE) 5,000 UNITS/ML 1ML VIAL SQ SCH (21:26)
[2022-08-13] MEDS ORDERED: MELATONIN 5 MG TABLETS ONE ×2 (21:27→23:37)
[2022-08-13] MEDS: MELATONIN 5 MG TABLETS PO PRN ×2 (21:30→23:41)
[2022-08-13] MEDS ORDERED: hydrALAZINE HCL 10 MG TABLET PO ONE (23:27)
[2022-08-14] MEDS ORDERED: HEPARIN NA (PORCINE) 5,000 UNITS/ML 1ML VIAL ONE (05:38)
[2022-08-14] MEDS: HEPARIN NA (PORCINE) 5,000 UNITS/ML 1ML VIAL SQ SCH ×3 (05:49→21:01)
[2022-08-14] MEDS ORDERED: METOPROLOL TARTRATE 25 MG TABLET (FP) ONE (08:42)
[2022-08-14] MEDS ORDERED: LOSARTAN POTASSIUM 50 MG TABLET ONE (08:42)
[2022-08-14 08:48] LABS: BASO % 0.6 % (0-2.0); EOS % 0.9 % (0-4.5); HEMATOCRIT 34.1 % (35.4-49); HEMOGLOBIN 11.4 GM/dL (11.7-16.9); LYMPH % 16.2 % (8-40); MCH 30.2 pg (25.7-33.7); MCHC 33.3 g/dl (32.0-35.9); MEAN CELL VOLUME 90.7 fl (80-96); MEAN PLT VOLUME 9.6 fl (7.5-11.1); MONO % 5.1 % (3.8-10.2); NEUT % 77.2 % (42.8-82.8); PLATELET COUNT 111 10^3/uL (134-434); RBC 3.76 M/mm3 (4.00-5.60); RDW 16.4 % (11.9-15.9); WHITE BLOOD COUNT 9.8 K/mm3 (4.0-10.0)
[2022-08-14 09:07] LABS: CALCIUM 8.6 mg/dL (8.5-10.1)
[2022-08-14 09:08] LABS: ALBUMIN 3.2 g/dl (3.4-5.0); BLOOD UREA NITROGEN 25.6 mg/dL (7-18); MAGNESIUM 1.9 mg/dL (1.8-2.4)
[2022-08-14 09:11] LABS: CREATININE 1.1 mg/dL (0.55-1.3); PHOSPHOROUS 3.3 mg/dL (2.5-4.9)
[2022-08-14 09:12] LABS: BILIRUBIN,TOTAL 1.2 mg/dL (0.2-1); TOT PROT 6.6 g/dl (6.4-8.2)
[2022-08-14] MEDS: METOPROLOL TARTRATE 25 MG TABLET (FP) PO SCH (09:18)
[2022-08-14] MEDS ORDERED: LOSARTAN POTASSIUM 50 MG TABLET PO SCH (10:00)
[2022-08-14] MEDS ORDERED: ENOXAPARIN NA (PORCINE) 40 MG/0.4 ML DISP.SYRIN SQ SCH (10:00)
[2022-08-14 13:42] VITALS: BMI 25.7
[2022-08-14] MEDS ORDERED: POTASSIUM CHLORIDE ORAL LIQUID 20 MEQ/15 ML PO ONE (14:15)
[2022-08-14] MEDS: D5-1/2NS+10 MEQ KCL - 10 MEQ/1,000 ML INFUS.BAG IV SCH (14:53)
[2022-08-14] MEDS: ASPIRIN 81 MG CHEWABLE TABLETS PO SCH (14:54)
[2022-08-14] MEDS: MELATONIN 5 MG TABLETS PO PRN (21:01)
[2022-08-14] MEDS ORDERED: levETIRAcetam 500 MG/5 ML INJECTION VIAL IVPB ONE ×2 (21:19→21:38)
[2022-08-15] MEDS: D5-1/2NS+10 MEQ KCL - 10 MEQ/1,000 ML INFUS.BAG IV SCH ×3 (03:35→18:55)
[2022-08-15] MEDS: HEPARIN NA (PORCINE) 5,000 UNITS/ML 1ML VIAL SQ SCH ×3 (05:53→21:16)
[2022-08-15] MEDS ORDERED: levETIRAcetam 500 MG/5 ML INJECTION VIAL IVPB SCH (08:00)
[2022-08-15 08:29] LABS: BASO % 0.7 % (0-2.0); EOS % 1.6 % (0-4.5); HEMATOCRIT 32.8 % (35.4-49); HEMOGLOBIN 10.8 GM/dL (11.7-16.9); LYMPH % 24.7 % (8-40); MCHC 32.9 g/dl (32.0-35.9); MEAN CELL VOLUME 91.4 fl (80-96); MEAN PLT VOLUME 9.5 fl (7.5-11.1); MONO % 6.3 % (3.8-10.2); NEUT % 66.7 % (42.8-82.8); PLATELET COUNT 109 10^3/uL (134-434); RBC 3.59 M/mm3 (4.00-5.60); RDW 16.3 % (11.9-15.9); WHITE BLOOD COUNT 8.1 K/mm3 (4.0-10.0)
[2022-08-15 08:52] LABS: BLOOD UREA NITROGEN 18.1 mg/dL (7-18); CALCIUM 8.3 mg/dL (8.5-10.1); MAGNESIUM 1.9 mg/dL (1.8-2.4)
[2022-08-15 08:55] LABS: CREATININE 0.9 mg/dL (0.55-1.3)
[2022-08-15] MEDS: ASPIRIN 81 MG CHEWABLE TABLETS PO SCH (10:33)
[2022-08-15 12:13] LABS: N-TERMINAL BNP 153.9 pg/ml (5-125)
[2022-08-15] MEDS ORDERED: MINERAL OIL/PET HY-PHL TOPICAL OINTMENT 454 GM JAR TP SCH (15:15)
[2022-08-15] MEDS ORDERED: COLLAGENASE CLOSTRIDIUM HIST. 30 GRAMS TUBE TP SCH (15:15)
[2022-08-15] MEDS ORDERED: MELATONIN 5 MG TABLETS PO PRN (18:49)
[2022-08-16] MEDS: D5-1/2NS+10 MEQ KCL - 10 MEQ/1,000 ML INFUS.BAG IV SCH ×2 (02:26→16:04)
[2022-08-16] MEDS: HEPARIN NA (PORCINE) 5,000 UNITS/ML 1ML VIAL SQ SCH ×3 (05:55→22:15)
[2022-08-16] MEDS: ASPIRIN 81 MG CHEWABLE TABLETS PO SCH (10:26)
[2022-08-16] MEDS: MINERAL OIL/PET HY-PHL TOPICAL OINTMENT 454 GM JAR TP SCH (10:45)
[2022-08-16] MEDS: COLLAGENASE CLOSTRIDIUM HIST. 30 GRAMS TUBE TP SCH (10:45)
[2022-08-16] MEDS: ASCORBIC ACID 250 MG TABLET (FP) PO SCH (14:12)
[2022-08-16] MEDS: ZINC SULFATE 220 MG CAPSULE (FP) PO SCH (14:12)
[2022-08-17] MEDS: D5-1/2NS+10 MEQ KCL - 10 MEQ/1,000 ML INFUS.BAG IV SCH ×3 (05:52→20:27)
[2022-08-17] MEDS: HEPARIN NA (PORCINE) 5,000 UNITS/ML 1ML VIAL SQ SCH ×3 (05:53→21:59)
[2022-08-17] MEDS ORDERED: PIPERACILLIN/TAZOB 3.375 GM 3.375 GM in DEXTROSE 5%-WATER - 50 ML IVPB ONE (10:21)
[2022-08-17] MEDS: ASPIRIN 81 MG CHEWABLE TABLETS PO SCH (10:26)
[2022-08-17] MEDS: MULTIVITAMINS (DAILY MVI) TABLET (FP) PO SCH (10:26)
[2022-08-17] MEDS: amLODIPine BESYLATE 2.5 MG TABLET (FP) PO SCH (10:27)
[2022-08-17] MEDS: ZINC SULFATE 220 MG CAPSULE (FP) PO SCH (10:27)
[2022-08-17] MEDS: ASCORBIC ACID 250 MG TABLET (FP) PO SCH (10:27)
[2022-08-17] MEDS ORDERED: VANCOMYCIN 1 GM/200 ML PREMIX BAG (RESTRICTED TO ID ONLY) IVPB ONE (10:55)
[2022-08-17 11:21] LABS: CALCIUM 8.1 mg/dL (8.5-10.1)
[2022-08-17 11:22] LABS: ALBUMIN 2.6 g/dl (3.4-5.0); BLOOD UREA NITROGEN 16.7 mg/dL (7-18); MAGNESIUM 1.8 mg/dL (1.8-2.4)
[2022-08-17 11:23] LABS: BASO % 0.3 % (0-2.0); EOS % 0.4 % (0-4.5); HEMATOCRIT 31.7 % (35.4-49); HEMOGLOBIN 10.6 GM/dL (11.7-16.9); MCH 30.2 pg (25.7-33.7); MCHC 33.4 g/dl (32.0-35.9); MEAN CELL VOLUME 90.4 fl (80-96); MEAN PLT VOLUME 9.6 fl (7.5-11.1); MONO % 7.8 % (3.8-10.2); NEUT % 81.5 % (42.8-82.8); PLATELET COUNT 90 10^3/uL (134-434); RDW 15.9 % (11.9-15.9); WHITE BLOOD COUNT 10.8 K/mm3 (4.0-10.0)
[2022-08-17 11:25] LABS: CREATININE 1.1 mg/dL (0.55-1.3)
[2022-08-17 11:26] LABS: BILIRUBIN,TOTAL 1.2 mg/dL (0.2-1); TOT PROT 5.7 g/dl (6.4-8.2)
[2022-08-17] MEDS: CEFTRIAXONE 2 GM in DEXTROSE 5%-WATER - 50 ML IVPB SCH (16:06)
[2022-08-17] MEDS: COLLAGENASE CLOSTRIDIUM HIST. 30 GRAMS TUBE TP SCH (16:07)
[2022-08-17] MEDS: MINERAL OIL/PET HY-PHL TOPICAL OINTMENT 454 GM JAR TP SCH (16:07)
[2022-08-17 21:00] LABS: URINE APPEARANCE CLEAR; URINE BILIRUBIN NEGATIVE (NEGATIVE); URINE COLOR YELLOW; URINE GLUCOSE (UA) NEGATIVE (NEGATIVE); URINE KETONE NEGATIVE (NEGATIVE); URINE LEUK ESTERASE NEGATIVE (NEGATIVE); URINE NITRITE NEGATIVE (NEGATIVE); URINE PROTEIN NEGATIVE (NEGATIVE); URINE UROBILINOGEN 0.2 mg/dL (0.2-1.0)
[2022-08-18] MEDS: D5-1/2NS+10 MEQ KCL - 10 MEQ/1,000 ML INFUS.BAG IV SCH ×2 (00:10→19:30)
[2022-08-18] MEDS: HEPARIN NA (PORCINE) 5,000 UNITS/ML 1ML VIAL SQ SCH ×3 (06:52→21:49)
[2022-08-18] MEDS: ASPIRIN 81 MG CHEWABLE TABLETS PO SCH ×2 (09:54→16:06)
[2022-08-18] MEDS: amLODIPine BESYLATE 2.5 MG TABLET (FP) PO SCH ×2 (09:54→16:06)
[2022-08-18] MEDS: ASCORBIC ACID 250 MG TABLET (FP) PO SCH ×2 (09:54→16:06)
[2022-08-18] MEDS: CEFTRIAXONE 2 GM in DEXTROSE 5%-WATER - 50 ML IVPB SCH (09:54)
[2022-08-18] MEDS: ZINC SULFATE 220 MG CAPSULE (FP) PO SCH ×2 (09:54→16:06)
[2022-08-18] MEDS: MULTIVITAMINS (DAILY MVI) TABLET (FP) PO SCH ×2 (09:54→16:06)
[2022-08-18 12:47] LABS: ALBUMIN 2.3 g/dl (3.4-5.0); BASO % 0.3 % (0-2.0); CALCIUM 8.1 mg/dL (8.5-10.1); EOS % 1.3 % (0-4.5); HEMATOCRIT 28.4 % (35.4-49); HEMOGLOBIN 9.5 GM/dL (11.7-16.9); LYMPH % 13.4 % (8-40); MCHC 33.3 g/dl (32.0-35.9); MEAN PLT VOLUME 9.7 fl (7.5-11.1); MONO % 8.9 % (3.8-10.2); NEUT % 76.1 % (42.8-82.8); PLATELET COUNT 93 10^3/uL (134-434); RBC 3.15 M/mm3 (4.00-5.60); WHITE BLOOD COUNT 10.3 K/mm3 (4.0-10.0)
[2022-08-18 12:48] LABS: MAGNESIUM 1.8 mg/dL (1.8-2.4)
[2022-08-18 12:51] LABS: BILIRUBIN,TOTAL 0.6 mg/dL (0.2-1)
[2022-08-18 12:52] LABS: TOT PROT 5.4 g/dl (6.4-8.2)
[2022-08-18] MEDS: MINERAL OIL/PET HY-PHL TOPICAL OINTMENT 454 GM JAR TP SCH (15:18)
[2022-08-18] MEDS: COLLAGENASE CLOSTRIDIUM HIST. 30 GRAMS TUBE TP SCH (15:19)
[2022-08-19] MEDS: HEPARIN NA (PORCINE) 5,000 UNITS/ML 1ML VIAL SQ SCH ×3 (05:01→21:40)
[2022-08-19 10:06] LABS: BASO % 0.4 % (0-2.0); EOS % 1.6 % (0-4.5); HEMATOCRIT 31.5 % (35.4-49); HEMOGLOBIN 10.5 GM/dL (11.7-16.9); LYMPH % 18.7 % (8-40); MCH 30.1 pg (25.7-33.7); MCHC 33.4 g/dl (32.0-35.9); MEAN CELL VOLUME 90.2 fl (80-96); MEAN PLT VOLUME 8.6 fl (7.5-11.1); MONO % 5.2 % (3.8-10.2); NEUT % 74.1 % (42.8-82.8); PLATELET COUNT 99 10^3/uL (134-434); RDW 16.1 % (11.9-15.9); WHITE BLOOD COUNT 6.9 K/mm3 (4.0-10.0)
[2022-08-19 10:37] LABS: ALBUMIN 2.6 g/dl (3.4-5.0)
[2022-08-19 10:38] LABS: BLOOD UREA NITROGEN 11.9 mg/dL (7-18); CALCIUM 8.5 mg/dL (8.5-10.1); MAGNESIUM 1.8 mg/dL (1.8-2.4)
[2022-08-19 10:40] LABS: CREATININE 0.9 mg/dL (0.55-1.3)
[2022-08-19 10:41] LABS: BILIRUBIN,TOTAL 0.9 mg/dL (0.2-1); TOT PROT 6.1 g/dl (6.4-8.2)
[2022-08-19] MEDS: COLLAGENASE CLOSTRIDIUM HIST. 30 GRAMS TUBE TP SCH (10:45)
[2022-08-19] MEDS: MINERAL OIL/PET HY-PHL TOPICAL OINTMENT 454 GM JAR TP SCH (10:45)
[2022-08-19] MEDS: CEFTRIAXONE 2 GM in DEXTROSE 5%-WATER - 50 ML IVPB SCH ×2 (10:51→12:57)
[2022-08-19] MEDS: MULTIVITAMINS (DAILY MVI) TABLET (FP) PO SCH (10:51)
[2022-08-19] MEDS: ZINC SULFATE 220 MG CAPSULE (FP) PO SCH (10:52)
[2022-08-19] MEDS: ASCORBIC ACID 250 MG TABLET (FP) PO SCH (10:52)
[2022-08-19] MEDS: amLODIPine BESYLATE 2.5 MG TABLET (FP) PO SCH (10:52)
[2022-08-19] MEDS: ASPIRIN 81 MG CHEWABLE TABLETS PO SCH (10:52)
[2022-08-19] MEDS: AMINO ACIDS/PROTEIN HYDROLYS 30 ML LIQUID.PKT PO SCH (17:42)
[2022-08-19] MEDS: D5-1/2NS+10 MEQ KCL - 10 MEQ/1,000 ML INFUS.BAG IV SCH (21:36)
[2022-08-20] MEDS: HEPARIN NA (PORCINE) 5,000 UNITS/ML 1ML VIAL SQ SCH ×3 (05:27→22:39)
[2022-08-20] MEDS: AMINO ACIDS/PROTEIN HYDROLYS 30 ML LIQUID.PKT PO SCH ×2 (09:30→17:24)
[2022-08-20] MEDS: MULTIVITAMINS (DAILY MVI) TABLET (FP) PO SCH (09:30)
[2022-08-20] MEDS: ASPIRIN 81 MG CHEWABLE TABLETS PO SCH (09:30)
[2022-08-20] MEDS: amLODIPine BESYLATE 2.5 MG TABLET (FP) PO SCH (09:30)
[2022-08-20] MEDS: ZINC SULFATE 220 MG CAPSULE (FP) PO SCH (09:30)
[2022-08-20] MEDS: ASCORBIC ACID 250 MG TABLET (FP) PO SCH (09:30)
[2022-08-20] MEDS: CEFTRIAXONE 2 GM in DEXTROSE 5%-WATER - 50 ML IVPB SCH (09:31)
[2022-08-20] MEDS: COLLAGENASE CLOSTRIDIUM HIST. 30 GRAMS TUBE TP SCH (10:30)
[2022-08-20] MEDS: MINERAL OIL/PET HY-PHL TOPICAL OINTMENT 454 GM JAR TP SCH (10:30)
[2022-08-20 11:58] LABS: BASO % 0.4 % (0-2.0); EOS % 1.7 % (0-4.5); HEMATOCRIT 26.4 % (35.4-49); HEMOGLOBIN 8.8 GM/dL (11.7-16.9); MCH 30.1 pg (25.7-33.7); MCHC 33.5 g/dl (32.0-35.9); MEAN CELL VOLUME 89.9 fl (80-96); MEAN PLT VOLUME 8.7 fl (7.5-11.1); MONO % 8.4 % (3.8-10.2); NEUT % 70.5 % (42.8-82.8); PLATELET COUNT 111 10^3/uL (134-434); RBC 2.94 M/mm3 (4.00-5.60); RDW 15.9 % (11.9-15.9); WHITE BLOOD COUNT 7.1 K/mm3 (4.0-10.0)
[2022-08-20 12:28] LABS: ALBUMIN 2.3 g/dl (3.4-5.0); BLOOD UREA NITROGEN 16.2 mg/dL (7-18); CALCIUM 8.3 mg/dL (8.5-10.1)
[2022-08-20 12:29] LABS: BILIRUBIN,TOTAL 0.4 mg/dL (0.2-1); MAGNESIUM 1.9 mg/dL (1.8-2.4); TOT PROT 5.4 g/dl (6.4-8.2)
[2022-08-20 12:30] LABS: CREATININE 0.8 mg/dL (0.55-1.3)
[2022-08-20 17:01] LABS: ARTERIAL BLD GAS O2 SATURATION 98.4 % (95-98); ARTERIAL BLOOD GAS PO2 117.9 mmHg (80-100); ARTERIAL BLOOD GAS pH 7.446 (7.350-7.450)
[2022-08-20 17:03] LABS: ALLENS TEST POSITIVE
[2022-08-21] MEDS: HEPARIN NA (PORCINE) 5,000 UNITS/ML 1ML VIAL SQ SCH ×2 (05:26→13:49)
[2022-08-21] MEDS: ZINC SULFATE 220 MG CAPSULE (FP) PO SCH (10:40)
[2022-08-21] MEDS: ASPIRIN 81 MG CHEWABLE TABLETS PO SCH (10:40)
[2022-08-21] MEDS: MULTIVITAMINS (DAILY MVI) TABLET (FP) PO SCH (10:40)
[2022-08-21] MEDS: ASCORBIC ACID 250 MG TABLET (FP) PO SCH (10:40)
[2022-08-21] MEDS: AMINO ACIDS/PROTEIN HYDROLYS 30 ML LIQUID.PKT PO SCH (10:40)
[2022-08-21] MEDS: COLLAGENASE CLOSTRIDIUM HIST. 30 GRAMS TUBE TP SCH (10:41)
[2022-08-21] MEDS: MINERAL OIL/PET HY-PHL TOPICAL OINTMENT 454 GM JAR TP SCH (10:41)
[2022-08-21 10:50] LABS: BASO % 0.5 % (0-2.0); EOS % 1.6 % (0-4.5); HEMATOCRIT 28.8 % (35.4-49); HEMOGLOBIN 9.3 GM/dL (11.7-16.9); LYMPH % 20.8 % (8-40); MCH 29.3 pg (25.7-33.7); MCHC 32.4 g/dl (32.0-35.9); MEAN CELL VOLUME 90.7 fl (80-96); MEAN PLT VOLUME 9.1 fl (7.5-11.1); MONO % 9.9 % (3.8-10.2); NEUT % 67.2 % (42.8-82.8); PLATELET COUNT 131 10^3/uL (134-434); RBC 3.18 M/mm3 (4.00-5.60); RDW 15.8 % (11.9-15.9); WHITE BLOOD COUNT 7.6 K/mm3 (4.0-10.0)
[2022-08-21 11:10] LABS: CALCIUM 8.7 mg/dL (8.5-10.1)
[2022-08-21 11:11] LABS: ALBUMIN 2.6 g/dl (3.4-5.0); BLOOD UREA NITROGEN 17.4 mg/dL (7-18)
[2022-08-21 11:14] LABS: CREATININE 0.9 mg/dL (0.55-1.3)
[2022-08-21 11:16] LABS: BILIRUBIN,TOTAL 0.8 mg/dL (0.2-1)
[2022-08-21 11:54] VITALS: RESP 19
[2022-08-21 15:37] VITALS: BP 133/79; PULSE 72; TEMP 99.4
== END 2022-08-21 16:30 | disposition home or self-care (01) | DRG 56 ==
LOC: JER 10:29 → JERBED 13:30 → J4W 08-14 11:29 → J5S 08-15 18:41
PROVIDERS: ADMIT Internal Medicine; ATTEND Nurse Practitioner Family
DX: G20 Parkinson's disease (principal); J69.0 Pneumonitis due to inhalation of food and vomit; U07.1 COVID-19; I48.92 Unspecified atrial flutter; I42.8 Other cardiomyopathies; F02.80 Dementia in other diseases classified elsewhere, unspecified severity, without behavioral disturbance, psychotic disturbance, mood disturbance, and anxiety; I10 Essential (primary) hypertension; I12.9 Hypertensive chronic kidney disease with stage 1 through stage 4 chronic kidney disease, or unspecified chronic kidney disease; N18.9 Chronic kidney disease, unspecified; Z99.3 Dependence on wheelchair; E78.5 Hyperlipidemia, unspecified; E87.6 Hypokalemia; H54.8 Legal blindness, as defined in USA; L89.159 Pressure ulcer of sacral region, unspecified stage; I95.1 Orthostatic hypotension; G40.909 Epilepsy, unspecified, not intractable, without status epilepticus; I25.10 Atherosclerotic heart disease of native coronary artery without angina pectoris; R60.9 Edema, unspecified
CPT/HCPCS: 0241U-QW; 36415; 36600; 70450-TC; 71045-TC-FY; 80048; 80053; 80061; 81003; 82550; 82553; 82607; 82803; 82962; 83036; 83605; 83735; 83880; 84100; 84443; 84484; 85025; 85610; 85730; 86780; 87040; 87086; 87899; 93005; 93010; 93306-TC; 93971; 97116-GP; 97162-GP; 99285-25; C9803-CS; J1644; U0003; U0005